=== PATIENT | male | born 1950 | race Caucasian/White ===

== ENCOUNTER 2017-10-14 10:36 | Day surgery (SDC) | payer MEDICARE ==
[~2017-10-14] VITALS: Ht 177.8 cm; Wt 136.1 kg
[2017-10-14] VITALS (80 sets, daily range): BP systolic 152–211; BP diastolic 76–102; PULSE 16–47; TEMP 97.8–98; O2SAT 95–99
[~2017-10-14 10:36] MED LIST: INSULIN PEN SQ; VALIUM 5MG T5 MG/TAB PO; ZESTRIL 10MG10 MG PO
[2017-10-14 11:23] LABS: HEMOGLOBIN 11.9 g/dl (13.5-18.0); MEAN CELL VOLUME 101 fl (80.0-100.0); MEAN CORPUSCULAR HEMOGLOBIN 33 pg (27.0-31.0); MEAN CORPUSCULAR HGB CONC 33 g/dl (33.0-37.0); MEAN PLATELET VOLUME 11.8 fl (7.4-10.4); PLATELET COUNT 91 K/mm3 (130-400); REDCELL DISTRIBUTION WIDTH-CV 14.2 % (11.5-14.5)
[2017-10-14 11:24] LABS: HEMATOCRIT 36.2 % (42.0-52.0)
[2017-10-14 11:28] LABS: INR 1.1 (0.8-3.0); PROTHROMBIN TIME 12.4 SECONDS (9.7-12.8)
[2017-10-14 11:34] LABS: CREATININE, serum 1.92 mg/dL (0.66-1.25); POTASSIUM 4.9 mmol/L (3.4-5.0)
[2017-10-14] MEDS ORDERED: HYDRODIURIL50 MG PO (11:47)
[2017-10-14] MEDS ORDERED: JANUVIA 100MG100 MG PO (11:47)
[2017-10-14] MEDS ORDERED: LOPRESSOR 550 MG/TAB PO (11:48)
[2017-10-14] MEDS ORDERED: GLUCOTROL10 MG PO (11:48)
[2017-10-14] MEDS ORDERED: K-TAB20 PO (11:49)
[2017-10-14] MEDS ORDERED: ZOCOR 10MG10 MG PO (11:49)
[2017-10-14] MEDS ORDERED: ASPIRIN 81M81 MG/TA2 PO (11:50)
[2017-10-15] VITALS (277 sets, daily range): BP systolic 132–159; BP diastolic 65–81; PULSE 42–81; TEMP 97–98.1; O2SAT 92–99
[2017-10-15 05:45] LABS: BASO # 0.1 (0.0-0.2); BASO % 0.8 % (0.0-2.0); EOS # 0.5 (0.0-0.7); EOS % 6.9 % (0-4.0); GRAN # 5.4 (1.4-6.5); LYMPH # 1.1 (1.2-3.4); LYMPH % 14.5 % (20.0-51.0); MEAN CELL VOLUME 99 fl (80.0-100.0); MEAN CORPUSCULAR HGB CONC 33 g/dl (33.0-37.0); MONO # 0.5 (0.1-0.6); MONO % 6.3 % (1.7-9.3); PLATELET COUNT 87 K/mm3 (130-400); RED BLOOD COUNT 2.98 M/mm3 (4.20-5.60); REDCELL DISTRIBUTION WIDTH-CV 14.1 % (11.5-14.5)
[2017-10-15 05:53] LABS: HEMATOCRIT 29.6 % (42.0-52.0); HEMOGLOBIN 9.8 g/dl (13.5-18.0); MEAN CORPUSCULAR HEMOGLOBIN 33 pg (27.0-31.0)
[2017-10-15 05:55] LABS: CALCIUM 7.7 mg/dL (8.4-10.2); CREATININE, serum 1.81 mg/dL (0.66-1.25); POTASSIUM 4.8 mmol/L (3.4-5.0)
[2017-10-15] MEDS ORDERED: BRILINTA90 MG PO (10:57)
[2017-10-15] MEDS ORDERED: NORVASC 10MG10 MG PO (10:57)
[2017-10-15] MEDS ORDERED: LIPITOR20 MG PO (10:57)
== END 2017-10-15 12:46 | disposition home or self-care (01) ==
LOC: COL.CAR 10:36 → ICU 16:15 → COL.CAR 10-15 12:46
PROVIDERS: Internal Medicine Cardiovascular Disease; Nurse Practitioner
DX: I25.10 Atherosclerotic heart disease of native coronary artery without angina pectoris (principal); I27.20 Pulmonary hypertension, unspecified; I08.3 Combined rheumatic disorders of mitral, aortic and tricuspid valves; Z79.4 Long term (current) use of insulin
CPT/HCPCS: OP; C1760; C1769; C1874; C1887; C1894; C9600; J0153; J2250; J3010

== ENCOUNTER 2018-05-18 07:58 | Observation (INO) | payer MEDICARE ==
[2018-05-18] VITALS (186 sets, daily range): BP systolic 147–209; BP diastolic 55–99; PULSE 48–62; TEMP 97.1–97.7; O2SAT 94–100
[~2018-05-18] VITALS: Ht 175.3 cm; Wt 111.5 kg
[~2018-05-18 07:58] MED LIST changes: +ASPIRIN 81M81 MG/TA2 PO; +BRILINTA90 MG PO; +GLUCOTROL10 MG PO; +HYDRODIURIL50 MG PO; +JANUVIA 100MG100 MG PO; +K-TAB20 PO; +LIPITOR20 MG PO; +LOPRESSOR 550 MG/TAB PO; +NORVASC 10MG10 MG PO; +ZOCOR 10MG10 MG PO
[2018-05-18 08:35] LABS: HEMOGLOBIN 11.5 g/dl (13.5-18.0); MEAN CELL VOLUME 97 fl (80.0-100.0); MEAN CORPUSCULAR HEMOGLOBIN 33 pg (27.0-31.0); MEAN CORPUSCULAR HGB CONC 34 g/dl (33.0-37.0); MEAN PLATELET VOLUME 11.4 fl (7.4-10.4); PLATELET COUNT 102 K/mm3 (130-400); RED BLOOD COUNT 3.46 M/mm3 (4.20-5.60); REDCELL DISTRIBUTION WIDTH-CV 14.2 % (11.5-14.5)
[2018-05-18 08:36] LABS: HEMATOCRIT 33.5 % (42.0-52.0)
[2018-05-18 08:42] LABS: INR 1.1 (0.8-3.0); PROTHROMBIN TIME 12.6 SECONDS (9.7-12.8)
[2018-05-18 08:48] LABS: CALCIUM 8.5 mg/dL (8.4-10.2); CREATININE, serum 1.6 mg/dL (0.66-1.25); POTASSIUM 3.9 mmol/L (3.4-5.0)
[2018-05-18] MEDS ORDERED: [UNRECOGNIZED DRUG - OTHER] PO (09:07)
[2018-05-18] MEDS ORDERED: NORVASC 5MG5 MG/TAB PO (09:24)
[2018-05-18] MEDS ORDERED: TYLENOL 500MG500 MG PO (09:25)
[2018-05-18] MEDS ORDERED: BRILINTA90 MG PO (09:26)
[2018-05-18] MEDS ORDERED: TOPROL XL 50MG50 MG PO (09:27)
[2018-05-18] MEDS ORDERED: ZOCOR 10MG10 MG PO (09:28)
--- NOTE | 2018-05-18 10:30 | NUR ---
Pt resting well in bed. Pt waiting for cathead worker.
--- NOTE | 2018-05-18 12:05 | NUR ---
Pt to lab asst per bed with lab asst staff.
--- NOTE | 2018-05-18 12:19 | NUR ---
ALL SEDATION MEDICATIONS WILL BE GIVEN DURING PROCEDURE WITH VERBAL ORDER FROM MD CARROLL. SEE MERGE FOR ADMIN TIMES.
--- NOTE | 2018-05-18 13:55 | NUR ---
Pt returned to EU 12 per bed s/p heart cath. Report received from cardiac cath lab radiology technologist that pt fell in cardiac cath lab radiology technologist and hit his head and landed on R wrist. Pt c/o H/A 09/11. Pt has brace on R wrist and C-collar. Pt also c/p pain in R wrist.
--- NOTE | 2018-05-18 14:10 | NUR ---
Pt report h/a increasing to 10/11.
--- NOTE | 2018-05-18 14:30 | NUR ---
Pt reports he is seeing a black bug, no bug observed in room by family or nurse. H/A 11/11.
--- NOTE | 2018-05-18 14:55 | NUR ---
Pt transported to CT per bed with back board in place.
--- NOTE | 2018-05-18 15:05 | NUR ---
Pt transfered from CT to ICU 7 per bed with c collar and back board in place. Report to Jett Guerrero RN whi assumed care at this time.
--- NOTE | 2018-05-18 15:10 | NUR ---
Patient transferred to ICU#7 via bed on backboard, c-collar in place, right forearm skin tear, right femoral groin site soft without hematoma, angioseal and safeguard in place. Right wrist swollen, with brace in place, ice pack applied to wrist. Patient alert and oriented, reports pain to back, reports seeing "bug" in left eye, that is "black and turquise." Assessment complete, 1/2 NS infusing at 125ml/hr to left AC IV. Call light within reach.
--- NOTE | 2018-05-18 17:00 | NUR ---
Patient reports pain 10/10 to back, states "I feel worse than when I came in." at bedside.
--- NOTE | 2018-05-18 17:26 | NUR ---
Patient transferred off of backboard at this time. remains at bedside.
--- NOTE | 2018-05-18 17:33 | NUR ---
Patient states pain "is better" remains at bedside.
--- NOTE | 2018-05-18 18:30 | NUR ---
Patient remains in c-collar, sitting up eating dinner, at bedside.
--- NOTE | 2018-05-18 19:27 | NUR ---
Bedside report given to SULLY Jeffrey.
--- NOTE | 2018-05-18 20:00 | NUR ---
Shift assessment complete at this time. Plan of care reviewed at bedside with patient. Additional time taken to address any other needs or concerns. Vitals stable at this time. Pt reports back/neck/posterior head pain. Will adiminister PRN morphine 2 mg per orders. Denies any chest pain or other complaints. R Femoral cath site with scant drainage, no hematoma.
[2018-05-19] VITALS (426 sets, daily range): BP systolic 129–151; BP diastolic 63–79; PULSE 47–58; TEMP 97.4–98; O2SAT 92–100
--- NOTE | 2018-05-19 | NUR ---
Pt resting in bed. Vitals stable. R femoral cath site with old drainage, intact, dry, et no hematoma. Pt reports back\neck\head pain at severity of 6/10. Will administer PRN morphine 2 mg per orders. Will continue to monitor.
--- NOTE | 2018-05-19 04:00 | NUR ---
Pt sleeping in bed. Reports tolerable 3/10 back pain and declines any further intervention at this time. Vitals stable. R femoral cath site clean, dry, et intact with no hematoma or drainage. New dressing applied to cath site and safeguard removed. Will continue to monitor.
[2018-05-19 05:03] LABS: BASO % 0.7 % (0.0-2.0); EOS # 0.4 (0.0-0.7); EOS % 6.8 % (0-4.0); GRAN # 3.5 (1.4-6.5); GRAN % 62.6 % (42.2-75.2); HEMOGLOBIN 10.1 g/dl (13.5-18.0); LYMPH # 1.3 (1.2-3.4); LYMPH % 23.5 % (20.0-51.0); MEAN CELL VOLUME 97 fl (80.0-100.0); MEAN CORPUSCULAR HEMOGLOBIN 34 pg (27.0-31.0); MEAN CORPUSCULAR HGB CONC 35 g/dl (33.0-37.0); MONO # 0.4 (0.1-0.6); MONO % 6.2 % (1.7-9.3); PLATELET COUNT 88 K/mm3 (130-400); REDCELL DISTRIBUTION WIDTH-CV 14.2 % (11.5-14.5)
[2018-05-19 05:13] LABS: HEMATOCRIT 29.2 % (42.0-52.0)
[2018-05-19 05:18] LABS: CREATININE, serum 1.55 mg/dL (0.66-1.25); POTASSIUM 4.3 mmol/L (3.4-5.0)
--- NOTE | 2018-05-19 07:36 | NUR ---
Bedside report given to SULLY Brewster.
--- NOTE | 2018-05-19 08:00 | NUR ---
PT ALERT AND ORIENTED X4. PT REMAINS IN C-COLLAR AFTER FALL YESTERDAY. PT CONTINUES TO HAVE PAIN IN NECK AND HEAD. PT'S NEUROLOGICAL STATUS INTACT BESIDES SOME LEFT EYE PERIPHERAL DISTURBANCE. PT STATES HE INTERMITTENTLY HAS A VISUAL DISTURBANCE TO HIS LEFT PERIPHERAL OF A FLOATING DARK COLORED DOT. PT HAS HEMATOMA NOTED TO RIGHT POSTERIOR SCALP. PT ALSO HAS A SKIN ABRASION/SKIN TEAR TO RIGHT FOREARM. PT'S RIGHT ARM HAS 2+ EDEMA NOTED. PT ALSO HAS 2+ EDEMA TO BILATERAL LOWER EXTREMITIES. PT SINUS MARIE ON TELEMETRY. AM TOPROL XL HELD AT THIS TIME. PT'S ABD OBESE, BS ACTIVE. ABD NONTENDER. PT HAS PERIPHERAL IV TO LEFT AC.
--- NOTE | 2018-05-19 09:03 | NUR ---
grout worker met with patient and Annie, life partner, for a discharge planning assessment. Patient had an outpatient heart procedure and hopes to discharge home today. Patient lives in [place], with Annie. Both report that patient is independent with his activities of daily living, does not utilize outside resources, and plans to return without concern. Patient's primary care physician is Dr Calvillo in [place] and they deny difficulty obtaining prescriptions.
--- NOTE | 2018-05-19 11:30 | NUR ---
PT TAKEN TO MRI VIA WHEELCHAIR BY X RAY TECH.
--- NOTE | 2018-05-19 12:27 | NUR ---
First visit from the hull inspector. No needs right now.
--- NOTE | 2018-05-19 13:16 | NUR ---
DR RODRIGUEZ NOTIFIED OF PATIENT'S MRI RESULTS. DR RODRIGUEZ STATES SHE WILL BE BACK SHORTLY TO DISCHARGE PATIENT.
[2018-05-19] MEDS ORDERED: NORCO 325 MG-51 TAB PO (13:40)
--- NOTE | 2018-05-19 14:00 | NUR ---
DISCHARGE INSTRUCTIONS REVIEWED WITH PATIENT AND . PT VERBALIZES UNDERSTANDING. IV DISCONTINUED. PT TRANSPORTED TO ENTRANCE WHERE AWAITED WITH CAR. PT'S BELONGINGS DISCHARGED WITH PATIENT.
== END 2018-05-19 14:00 | disposition home or self-care (01) ==
LOC: COL.CAR 07:58 → ICU 15:26 → COL.CAR 16:24 → ICU 16:25
PROVIDERS: Internal Medicine Cardiovascular Disease; ADMIT Family Medicine
DX: I25.10 Atherosclerotic heart disease of native coronary artery without angina pectoris (principal); S06.0X9A Concussion with loss of consciousness of unspecified duration, initial encounter; M54.2 Cervicalgia; M54.5 Low back pain; I10 Essential (primary) hypertension; E11.9 Type 2 diabetes mellitus without complications; I27.20 Pulmonary hypertension, unspecified; Z79.84 Long term (current) use of oral hypoglycemic drugs; Z79.82 Long term (current) use of aspirin; Z80.9 Family history of malignant neoplasm, unspecified; Z82.49 Family history of ischemic heart disease and other diseases of the circulatory system
CPT/HCPCS: 99239; C1760; C1894; G0378; J1644; J1815; J2270; J3010; Q9967

== ENCOUNTER 2020-07-24 05:00 | Observation (INO) | payer MEDICARE ==
[~2020-07-24] VITALS: Ht 175.3 cm; Wt 109.0 kg
[~2020-07-24 05:00] MED LIST changes: +NORCO 325 MG-51 TAB PO; +NORVASC 5MG5 MG/TAB PO; +TOPROL XL 50MG50 MG PO; +TYLENOL 500MG500 MG PO; +[UNRECOGNIZED DRUG - OTHER] PO
[2020-07-24] MEDS ORDERED: TOPROL XL100 MG PO (09:44)
[2020-07-24] MEDS ORDERED: LASIX 20MG TABL20 MG PO (09:47)
[2020-07-24] MEDS ORDERED: JANUVIA 100MG100 MG PO (09:48)
[2020-07-24] MEDS ORDERED: SYNTHROID0.1 MG/TAB PO (09:48)
[2020-07-24] MEDS ORDERED: ALDACTONE 25MG25 M1 PO (09:50)
[2020-07-24] MEDS ORDERED: IMDUR 30MG30 MG/TAB PO (09:51)
[2020-07-24] MEDS ORDERED: LIPITOR20 MG PO (09:52)
[2020-07-24 10:13] VITALS: BP 161/79; PULSE 61; TEMP 97.6
--- NOTE | 2020-07-24 10:47 | NUR ---
Pt arrived to room 358 at this time, admission and assessment completed. Med rec/allergies completed. Pt c/o of pain to LLE. LS cta, HRRR, BS active. Pt denies chest pain, N/V/D, abd pain, /GI concerns. Pt states he has some SOB and dizziness occasionally. Pt on room air, breathing is even and unlabored at this time. at bedside. All questions answered, no further needs expressed. Pt to have CT this afternoon.
[2020-07-24 10:57] LABS: BASO # 0.1 (0.0-0.2); BASO % 0.9 % (0.0-2.0); EOS # 0.5 (0.0-0.7); EOS % 5.7 % (0-4.0); GRAN # 5.7 (1.4-6.5); GRAN % 72.3 % (42.2-75.2); HEMATOCRIT 30.5 % (42.0-52.0); HEMOGLOBIN 9.8 g/dl (13.5-18.0); LYMPH # 1.2 (1.2-3.4); LYMPH % 14.8 % (20.0-51.0); MEAN CELL VOLUME 104 fl (80.0-100.0); MEAN CORPUSCULAR HEMOGLOBIN 33 pg (27.0-31.0); MEAN CORPUSCULAR HGB CONC 32 g/dl (33.0-37.0); MEAN PLATELET VOLUME 9.8 fl (7.4-10.4); MONO # 0.5 (0.1-0.6); MONO % 5.7 % (1.7-9.3); PLATELET COUNT 172 K/mm3 (130-400); RED BLOOD COUNT 2.94 M/mm3 (4.20-5.60); REDCELL DISTRIBUTION WIDTH-CV 13.5 % (11.5-14.5)
[2020-07-24 11:08] LABS: CALCIUM 8.4 mg/dL (8.4-10.2); CREATININE, serum 2.76 (0.66-1.25)
[2020-07-24 11:19] LABS: ERYTHROCYTE SEDIMENTATION RATE 76 mm/hr (0-30)
[2020-07-24 11:24] LABS: POTASSIUM 6.8 mmol/L (3.4-5.0)
--- NOTE | 2020-07-24 12:26 | NUR ---
20G IV started to RAC by SULLY Del Valle. Critical K+ lab 6.8 called to this nurse, SULLY Spicer w/ cardiology aware. No new orders at this time. CT for this afternoon.
[2020-07-24 16:34] VITALS: BP 164/74; PULSE 65; TEMP 97.7
[2020-07-24] MEDS ORDERED: CEPHALEXIN500 M1 PO (17:34)
[2020-07-24] MEDS ORDERED: NAPROSYN500 MG PO (17:34)
--- NOTE | 2020-07-24 18:13 | NUR ---
Discussed meds w/ Dannielle ELL TUTOR w/ Dr. Pfeiffer, pt unsure of some meds and doses, current list he has is not updated, unsure of meds. Updated med list as best as we could. Surgical consult called to Dr. Truong and consult placed w/ Dr. Lisa. POC discussed, one time order for 45g Kayexalate NOW and repeat K+ lab at 2100.
[2020-07-24 19:02] VITALS: BP 178/86; PULSE 61; TEMP 98
[2020-07-24 23:22] VITALS: BP 150/70; PULSE 59; TEMP 98.1
--- NOTE | 2020-07-25 00:57 | NUR ---
1999- ASSESSMENT COMPLETE. DENIES SOA, CHEST PAIN OR DIZZY. SOME SWELLING AND PAIN TO LEFT GROIN. BP INCREASING OVER THE DAY. HOME MEDS NOT RESTARTED. CALLED DOCTOR OF NAPRAPATHY DR CHEN TO REPORT BP 178/86. REPORTED POTASSIUM OF 5.5 . NORVAC NOW AND PRN HYDROLSINE ORDERED. URINE NEEDS TO BE COLLECTED. POC AND ORDERS DISCUSSED W PT. NEEDS MET.
[2020-07-25 02:47] VITALS: BP 131/63; PULSE 61; TEMP 97.3
--- NOTE | 2020-07-25 05:12 | NUR ---
RESTED THROUGH THE NIGHT WITHOUT INCIDENT. URINE COLLECTED PER ORDER. BP WNL THIS AM AFTER RESTARTING HOME NORVASC LAST NIGHT. NEEDS MET.
--- NOTE | 2020-07-25 06:17 | NUR ---
blood sugar of 75, no symptoms. orange juice provided and will order breakfast at 0630. denies pain. needs met.
--- NOTE | 2020-07-25 07:00 | NUR ---
Report with SULLY Higuera. Pt resting in bed, drowsy, but awake, denies pain or needs. Call light in reach.
[2020-07-25 08:11] VITALS: BP 138/60; PULSE 60; TEMP 97.5
[2020-07-25] MEDS ORDERED: ALDACTONE 25MG25 M1 PO (09:48)
[2020-07-25] MEDS ORDERED: DEMADEX 20MG20 M1 PO (09:49)
[2020-07-25] MEDS ORDERED: PLAVIX 75MG TAB75 MG PO (09:49)
--- NOTE | 2020-07-25 10:53 | NUR ---
TAYLOR met with the patient and his , Annie (ph#[phone]), to discuss discharge plan. The patient was in the restroom. The patient lives in [place] with Annie. Annie reports that the patient is independent with ADLs and has a cane. The patient's PCP is Dr. Eugene Calvillo and he receives his medications from [facility] in . Annie reports that the patient's Eliquis is very expensive, but the patient's doctor was able to give them samples of it. The patient does not have a DPOA-HC, but Annie was interested in obtaining a form. TAYLOR provided. The patient plans to return home with his upon discharge. SW to follow as needed.
[2020-07-25 11:09] LABS: BASO # 0.1 (0.0-0.2); BASO % 0.9 % (0.0-2.0); EOS # 0.4 (0.0-0.7); EOS % 5.2 % (0-4.0); GRAN # 5.4 (1.4-6.5); GRAN % 67.1 % (42.2-75.2); LYMPH # 1.7 (1.2-3.4); LYMPH % 21.2 % (20.0-51.0); MEAN CELL VOLUME 105 fl (80.0-100.0); MEAN CORPUSCULAR HGB CONC 33 g/dl (33.0-37.0); MEAN PLATELET VOLUME 9.6 fl (7.4-10.4); MONO # 0.4 (0.1-0.6); MONO % 5.1 % (1.7-9.3); PLATELET COUNT 176 K/mm3 (130-400); RED BLOOD COUNT 2.91 M/mm3 (4.20-5.60); REDCELL DISTRIBUTION WIDTH-CV 13.4 % (11.5-14.5)
[2020-07-25 11:10] LABS: HEMATOCRIT 30.4 % (42.0-52.0); HEMOGLOBIN 9.9 g/dl (13.5-18.0); MEAN CORPUSCULAR HEMOGLOBIN 34 pg (27.0-31.0)
[2020-07-25 11:18] VITALS: BP 141/67; PULSE 59; TEMP 97.3
[2020-07-25 11:21] LABS: CALCIUM 8.4 mg/dL (8.4-10.2); CREATININE, serum 2.83 (0.66-1.25); POTASSIUM 5.2 mmol/L (3.4-5.0)
--- NOTE | 2020-07-25 12:55 | NUR ---
Primary nurse was assisted with [id number] patient care by [employer] student Micaela Hernandez and [employer] instructor Shima Kong MSN, RN.
[2020-07-25 14:55] LABS: MUCOUS Present /lpf; PH 6 (5-8); SQUAMOUS EPITHELIAL None Seen /hpf; URINE APPEARANCE Clear; URINE BACTERIA None Seen /hpf; URINE BILIRUBIN Negative (NEGATIVE); URINE BLOOD Negative (NEGATIVE); URINE COLOR Yellow; URINE GLUCOSE 1+ (NEGATIVE); URINE KETONE Negative (NEGATIVE); URINE LEUKOCYTE ESTERASE Negative (NEGATIVE); URINE NITRATE Negative (NEGATIVE); URINE PROTEIN(semi-quant) 2+ (NEGATIVE); URINE RBC 0-2 /hpf; URINE UROBILINOGEN Negative (NEGATIVE); URINE WBC 0-2 /hpf
[2020-07-25 15:01] LABS: COLLECTION METHOD CLEAN CATCH
[2020-07-25 16:35] VITALS: BP 140/63; PULSE 62; TEMP 98.5
--- NOTE | 2020-07-25 19:00 | NUR ---
Received report from Machelle. Patient awake in bed. Instructed him to call us everytime he voids as we will do the 24 hour urine collection. He verbalizes understanding.
--- NOTE | 2020-07-25 19:04 | NUR ---
Report given to SULLY Truong.
[2020-07-25 19:06] LABS: FOLATE (FOLIC ACID) 8.4 ng/mL (7.0-31.4)
--- NOTE | 2020-07-25 19:52 | NUR ---
Assesment done. Patient states his swelling on left upper thigh is much better now. It is still red, hard and warm to touch. He reports mild pain but states he will call if he wants to take pain medicine. Vancomycin started. Lungs are clear. Call light within reach.
[2020-07-25 20:37] VITALS: BP 153/70; PULSE 60; TEMP 97.6
--- NOTE | 2020-07-25 22:53 | NUR ---
Patient seen by Adeline SUNSHINE. He reports pain on his left upper thigh with pain score of 5/10. Dilaudid given. Informed patient on the frequency of his new medicines.
[2020-07-25 23:23] VITALS: BP 152/74; PULSE 62; TEMP 97.6
[2020-07-26 03:38] VITALS: BP 142/64; PULSE 61; TEMP 97.5
--- NOTE | 2020-07-26 06:36 | NUR ---
Patient had uneventful night. He had pain of 5/10 but refuses pain medicine and states he can still manage. Zosyn currently ongoing.
[2020-07-26 06:43] LABS: BASO # 0.1 (0.0-0.2); BASO % 0.9 % (0.0-2.0); EOS # 0.4 (0.0-0.7); EOS % 5.8 % (0-4.0); GRAN # 3.9 (1.4-6.5); GRAN % 58.3 % (42.2-75.2); LYMPH # 1.8 (1.2-3.4); LYMPH % 26.3 % (20.0-51.0); MEAN CELL VOLUME 104 fl (80.0-100.0); MEAN CORPUSCULAR HGB CONC 33 g/dl (33.0-37.0); MEAN PLATELET VOLUME 10.1 fl (7.4-10.4); MONO # 0.5 (0.1-0.6); MONO % 7.7 % (1.7-9.3); PLATELET COUNT 143 K/mm3 (130-400); RED BLOOD COUNT 2.54 M/mm3 (4.20-5.60); REDCELL DISTRIBUTION WIDTH-CV 13.3 % (11.5-14.5)
[2020-07-26 06:56] LABS: CALCIUM 7.9 mg/dL (8.4-10.2); CREATININE, serum 2.46 (0.66-1.25)
[2020-07-26 06:58] LABS: HEMATOCRIT 26.3 % (42.0-52.0); HEMOGLOBIN 8.6 g/dl (13.5-18.0); MEAN CORPUSCULAR HEMOGLOBIN 34 pg (27.0-31.0)
--- NOTE | 2020-07-26 07:13 | NUR ---
PATIENT SLEEPING IN BED. NO SIGNS OF DISTRESS NOTED
[2020-07-26 08:11] VITALS: BP 162/79; PULSE 60; TEMP 97.8
--- NOTE | 2020-07-26 08:23 | NUR ---
PATIENT ASSESSMENT COMPLETED. HE IS EATING BREAKFAST. HE REPORTS VERY LITTLE PAIN TO THE INSIDE OF THE LEFT THIGH. THIS AREA IS HARD TO TOUCH. DENIES NEED FOR MEDICATION AT THIS TIME.
[2020-07-26 13:13] VITALS: BP 136/70; PULSE 60; TEMP 98.2
--- NOTE | 2020-07-26 13:20 | NUR ---
patient up in the chair. He denies needs at this time. at bedside.
--- NOTE | 2020-07-26 15:06 | NUR ---
patient resting in bed. at bedside. No pain at this time.
[2020-07-26 15:25] VITALS: BP 131/64; PULSE 59; TEMP 97.6
--- NOTE | 2020-07-26 18:42 | NUR ---
PATIENT RESTING IN BED. DENIES NEEDS AT THIS TIME.
--- NOTE | 2020-07-26 19:01 | NUR ---
Received report from Jyoti. Patient awake in bed. Denies needs at this time.
[2020-07-26 19:14] VITALS: BP 131/63; PULSE 60; TEMP 98.2
[2020-07-27 00:22] VITALS: BP 118/58; PULSE 61; TEMP 97.6
[2020-07-27 04:28] VITALS: BP 141/72; PULSE 65; TEMP 98.2
[2020-07-27 06:20] LABS: BASO # 0.1 (0.0-0.2); EOS # 0.4 (0.0-0.7); EOS % 7.7 % (0-4.0); GRAN # 3.1 (1.4-6.5); GRAN % 53.5 % (42.2-75.2); LYMPH # 1.8 (1.2-3.4); LYMPH % 31.1 % (20.0-51.0); MEAN CELL VOLUME 103 fl (80.0-100.0); MEAN CORPUSCULAR HGB CONC 32 g/dl (33.0-37.0); MONO # 0.3 (0.1-0.6); MONO % 5.8 % (1.7-9.3); PLATELET COUNT 150 K/mm3 (130-400); RED BLOOD COUNT 2.54 M/mm3 (4.20-5.60); REDCELL DISTRIBUTION WIDTH-CV 13.2 % (11.5-14.5)
[2020-07-27 06:27] LABS: HEMATOCRIT 26.2 % (42.0-52.0); HEMOGLOBIN 8.5 g/dl (13.5-18.0); MEAN CORPUSCULAR HEMOGLOBIN 33 pg (27.0-31.0)
[2020-07-27 06:30] LABS: CALCIUM 7.6 mg/dL (8.4-10.2); CREATININE, serum 2.43 (0.66-1.25); POTASSIUM 4.5 mmol/L (3.4-5.0)
--- NOTE | 2020-07-27 06:36 | NUR ---
Patient had uneventful night. He is hopeful to be able to go home today. Dilaudid given once last night. He reports pain of 2/10 this morning.
[2020-07-27 08:00] VITALS: BP 153/74; PULSE 60; TEMP 97.5
--- NOTE | 2020-07-27 08:55 | NUR ---
PATIENT AWAKE IN BED FINISHING BREAKFAST. ASSESSMENT COMPLETED. AT BEDSIDE. INSIDE OF THE LEFT THIGH REMAINS HARD TO TOUCH.
[2020-07-27 12:00] VITALS: BP 122/64; PULSE 60; TEMP 97.8
[2020-07-27 12:16] LABS: URINE HOURS (UPEP) 24 (())
--- NOTE | 2020-07-27 13:16 | NUR ---
patient is awake in bed. at bedside.Lunch has now arrived.
[2020-07-27] MEDS ORDERED: ROXICODONE 55 MG/TAB PO (13:20)
[2020-07-27] MEDS ORDERED: OMNICEF 300MG300 MG PO (13:27)
--- NOTE | 2020-07-27 14:30 | NUR ---
PATIENT DISCHARGED TO HOME WITH BELONGINGS.
[2020-07-28 08:35] LABS: KAPPA FREE LIGHT CHAIN-SERUM 224.79 mg/L (()); KAPPA LAMBDA RATIO 1.55 ratio (()); LAMDA FREE LIGHT CHAIN SERUM 144.98 mg/L (())
[2020-07-29 23:03] LABS: URIN CONCENTRATION 24HR (UPEP) 136 mg/dL (()); URINE PROTEIN 24HR (UPEP) 2040 mg/24 h (<229)
[2020-07-30 17:20] LABS: A/G RATIO (PEP) 0.54 (()); BETA GLOBULINS (PEP) 1.1 g/dL (0.7-1.2)
[2020-07-31 15:03] LABS: URINE A/G RATIO 24HR (UPEP) 1.56 (()); URINE BETA GLOB 24HR (UPEP) 163.2 mg/24 h (()); URINE GAMMA GLOB 24HR (UPEP) 428.4 mg/24 h (())
== END 2020-07-27 14:45 | disposition home or self-care (01) ==
LOC: MEDICAL 05:00
PROVIDERS: Internal Medicine Nephrology; Nurse Practitioner; ADMIT Internal Medicine Interventional Cardiology
DX: I80.02 Phlebitis and thrombophlebitis of superficial vessels of left lower extremity (principal); L03.116 Cellulitis of left lower limb; I13.0 Hypertensive heart and chronic kidney disease with heart failure and stage 1 through stage 4 chronic kidney disease, or unspecified chronic kidney disease; I50.22 Chronic systolic (congestive) heart failure; E78.5 Hyperlipidemia, unspecified; I25.10 Atherosclerotic heart disease of native coronary artery without angina pectoris; I49.5 Sick sinus syndrome; E11.22 Type 2 diabetes mellitus with diabetic chronic kidney disease; N18.4 Chronic kidney disease, stage 4 (severe); D63.1 Anemia in chronic kidney disease; K74.60 Unspecified cirrhosis of liver; E03.9 Hypothyroidism, unspecified; E87.5 Hyperkalemia; E87.2 Acidosis; E66.01 Morbid (severe) obesity due to excess calories; Z79.82 Long term (current) use of aspirin; Z79.84 Long term (current) use of oral hypoglycemic drugs; Z87.891 Personal history of nicotine dependence; Z79.01 Long term (current) use of anticoagulants
CPT/HCPCS: 99223; G0378; J0690; J1170; J1644; J1815; J1940; J2543; J3370; J7040